=== PATIENT | female | born 1995 | race Hispanic/Latino ===

== ENCOUNTER 2022-02-15 09:47 | Day surgery (SDC) | payer SELFPAY ==
[2022-02-15] MEDS ORDERED: Bupivacaine/Epinephrine 0.25% 30 ML VIAL ONE (09:52)
[2022-02-15] MEDS ORDERED: SUGAMMADEX SODIUM 200 MG/2 ML VIAL ONE (09:56)
[2022-02-15] MEDS ORDERED: Famotidine/PF 20 mg/2ml Vial ONE (09:56)
[2022-02-15] MEDS ORDERED: HYDROmorphone 0.5 MG/0.5 ML SYRINGE ONE (09:56)
[2022-02-15] MEDS ORDERED: Midazolam HCl 2 mg/2 ml Vial ONE (10:01)
[2022-02-15] MEDS ORDERED: Fentanyl 100 MCG/2 ML VIAL ONE ×2 (10:01→12:19)
[2022-02-15] MEDS ORDERED: Succinylcholine Chloride 100 MG/5 ML SYRINGE FS ONE (10:30)
[2022-02-15] MEDS ORDERED: Lidocaine 1% PF 5 ML VIAL ONE (10:30)
[2022-02-15] MEDS ORDERED: NEOSTIGMINE 3 MG/3 ML SYR 3 MG/3 ML SYRINGE ONE (10:30)
[2022-02-15] MEDS ORDERED: Ketorolac Tromethamine 30 MG/ML VIAL ONE (10:30)
[2022-02-15] MEDS ORDERED: Esmolol 100 MG/10 ML VIAL ONE (10:30)
[2022-02-15] MEDS ORDERED: Glycopyrrolate 0.2 MG/ML 5 ML SYRINGE ONE (10:30)
[2022-02-15] MEDS ORDERED: Dexamethasone 20 MG/5 ML VIAL ONE (10:30)
[2022-02-15] MEDS ORDERED: PROPOFOL 200 MG/20 ML VIAL ONE (10:30)
[2022-02-15] MEDS ORDERED: Ondansetron PF 4 MG/2 ML Vial ONE (10:30)
[2022-02-15] MEDS ORDERED: Rocuronium Bromide 10 MG/ML (10ML VIAL) ONE (10:30)
[2022-02-15] MEDS ORDERED: traMADol HCl 50 MG TAB PO PRN (11:58)
[2022-02-15] MEDS ORDERED: Ibuprofen 600 MG TAB PO PRN (11:58)
[2022-02-15] MEDS ORDERED: Ondansetron PF 4 MG/2 ML Vial IVP PRN (11:58)
[2022-02-15] MEDS ORDERED: Acetaminophen 325 MG TAB PO PRN (11:58)
[2022-02-15] MEDS ORDERED: HYDROcodone/Acetaminophen 5/325 mg Tablet ONE (13:33)
== END 2022-02-15 19:00 | disposition home or self-care (01) ==
LOC: SDC 09:47
PROVIDERS: ATTEND Surgery
PROC: 8E0W4CZ Robotic Assisted Procedure of Trunk Region, Percutaneous Endoscopic Approach (ICD-10-PCS; principal; 2022-02-15)
PROC: 0FT44ZZ Resection of Gallbladder, Percutaneous Endoscopic Approach (ICD-10-PCS; principal; 2022-02-15)
DX: K80.12 Calculus of gallbladder with acute and chronic cholecystitis without obstruction (principal); F17.210 Nicotine dependence, cigarettes, uncomplicated
CPT/HCPCS: 88304; J1100; J1170; J1885; J2250; J2405; J2704; J3010; S0028